=== PATIENT | male | born 1945 | race Caucasian/White ===

== ENCOUNTER 2017-12-02 22:14 | Observation (INO) ==
[2017-12-02] MEDS ORDERED: methylPREDNISolone 125 MG/2 ML VIAL IVP ONE (22:52)
[2017-12-02 23:00] LABS: Basophils % 0.4 %; Eosinophils # 0.3 K/mcL (0.0-0.6); Eosinophils % 5.2 %; Hematocrit 35.7 % (37.5-50.1); Hemoglobin 11.9 g/dL (12.9-16.9); Lymphocytes # 1.3 K/mcL (0.6-4.6); Lymphocytes % 23.1 %; Mean Corpuscular HGB Conc 33.3 g/dL (31.6-35.5); Mean Corpuscular Hemoglobin 29.8 pg (28.0-33.3); Mean Corpuscular Volume 89.3 fL (83.0-100.0); Monocytes # 0.8 K/mcL (0.0-1.3); Monocytes % 14.4 %; Neutrophils # 3.1 K/mcL (1.6-8.9); Platelet Count 187 K/mcL (140-400); Red Cell Distribution Width 14.1 % (11.5-14.5); Segmented Neutrophils % 54.9 %
[2017-12-02 23:13] LABS: BUN/Creatinine Ratio 11 (6-26); Blood Urea Nitrogen 11 mg/dL (8-23); Calcium 7.7 mg/dL (8.6-10.3); Carbon Dioxide 24 mEq/L (23-29); Chloride 104 mEq/L (98-107); Glucose 108 mg/dL (70-105); Osmolality,Calculated 286 (280-300); Potassium 2.8 mEq/L (3.5-5.1); Sodium 138 mEq/L (136-145); eGFR For African Americans > 60 (> 60); eGFR For Non-African Americans > 60 (> 60)
--- NOTE | 2017-12-03 01:12 | Emergency Department Note ---
Disposition Clinical Impression: Hypokalemia Congestive heart failure Qualifiers: Congestive heart failure type: unspecified Congestive heart failure chronicity : acute Qualified Code(s): I50.9 - Heart failure, unspecified Angioedema Qualifiers: Encounter type: initial encounter Qualified Code(s): T78.3XXA - Angioneurotic edema, initial encounter Disposition: Admitted As Inpatient Condition: Good Chest Pain HPI - General Chief Complaint: ED Chest Pain Stated Complaint: chest tightness Time Seen by Provider: 12/02/17 22:20 Source: patient, family Limitations: no limitations Vital Signs Reviewed: Yes Nursing Notes Reviewed: Yes - History of Present Illness HPI Narrative: Patient presents to the emergency department for complaints of left-sided facial swelling as well as chest pain. Patient states symptoms started just prior to arrival. Patient noticed swelling of the lower lip and was concerned about possible stroke. No neurologic deficits noted. The patient states that the chest pain was described as a pressure in his chest which she has had before with previous [place]. Patient states chest pain has mostly resolved the problem presentation to the emergency department. Patient has never had any angioedema or similar swelling in the past. No new medications or foods. Patient does not know all of his medications and pharmacy med records have been requested. Severity scale (1-10): 0 - Related Data Home Medications Medication Instructions Recorded Confirmed Albuterol Sulfate [Proair Hfa] 2 puff IH Q4H PRN 06/08/16 12/02/17 Atorvastatin Calcium [Lipitor] 80 mg PO HS 06/08/16 12/02/17 Clopidogrel [Plavix] 75 mg PO DAILY 06/08/16 12/02/17 Fluticasone Propionate Nasal 50 mcg NS DAILY 06/08/16 12/02/17 [Flonase] Fluticasone/Salmeterol [Advair Hfa 2 puff IH BID 06/08/16 12/02/17 230-21 Mcg Inhaler] Montelukast [Singulair] 10 mg PO HS 06/08/16 12/02/17 Tamsulosin [Flomax] 0.4 mg PO DAILY 06/08/16 12/02/17 Finasteride [Proscar] 5 mg PO DAILY 12/02/17 12/02/17 Lisinopril [Zestril] 10 mg PO DAILY 12/02/17 12/02/17 Metoprolol XL (24 HR) Succ [Toprol 75 mg PO DAILY 12/02/17 12/02/17 XL] Allergies Allergy/AdvReac Type Severity Reaction Status Date / Time No Known Allergies Allergy Verified 06/08/16 08:57 All systems ED: reviewed and negative except as stated. Constitutional: Denies: fever, chills ENT ED: Reports: other (Lip swelling) Cardiovascular: Reports: chest pain Respiratory: Reports: dyspnea (Exertion) Gastrointestinal: Denies: abdominal pain, nausea, vomiting Musculoskeletal: Denies: back pain Integumentary: Reports: other (Lip swelling) Neurological: Denies: headache, weakness, numbness, paresthesias, confusion Endocrine: Denies: fatigue Chest Pain PMH - Past Medical History Medical history: Reports: asthma, coronary artery disease, hypertension Surgical history: Reports: coronary bypass (CABG), herniorrhaphy, sinus surgery Psychiatric history: Reports: no psych history - Social History Smoking Status: Never smoker Alcohol use: Reports: none Drug use: Reports: none Physical Exam General: Well appearing, nontoxic, no acute distress Head: Normocephalic Atraumatic Eyes: PERRL, EOMI ENT: Airway patent, no stridor Neck: supple, no meningismus Chest: Lungs clear to auscultation bilateral Cardiac: Regular rate and rhythm, no murmurs, rubs or gallops Abdomen: soft, nontender, nondistended; no guarding, rebound, or tenderness to percussion Musculoskeletal: Calves symmetric, nontender, no palpable cord Skin: No rash, normal skin tone Neuro: Alert and Oriented to person, place, and time; No focal deficit, CN 2-12 symmetric and intact; strength and sensation intact throughout the upper and lower extremities, finger to nose intact bilaterally. - General Limitations: no limitations General appearance: alert, in no apparent distress Course - Reevaluation(s) Reevaluation #1: Patient's lip swelling has improved with Benadryl and steroids. The patient's labs show that he has a potassium of 2.8 and a elevated BNP which is new with associated chest x-ray showing pulmonary vascular congestion. Upon further questioning the patient states he has had worsening exertional dyspnea over the last couple weeks. Due to the patient's low potassium he has not received Lasix within the emergency department. Potassium by mouth has been given. Patient will need further observation and management in the hospital. Patient will be admitted to the hospitalist service. - Consultations Consultation #1: Discussed with hospitalist. Patient accepted for admission. Vital Signs Temperature 97.8 F 12/02/17 22:16 Pulse Rate 84 12/02/17 22:16 Respiratory Rate 16 12/02/17 22:16 Blood Pressure 215/119 12/02/17 22:16 O2 Sat by Pulse Oximetry 94 12/02/17 22:16 Temperature 97.8 F 12/02/17 22:16 Pulse Rate 79 12/03/17 01:49 Respiratory Rate 12 12/03/17 01:49 Blood Pressure 166/80 12/03/17 01:49 O2 Sat by Pulse Oximetry 91 12/03/17 01:49 Oxygen Delivery Oxygen Delivery Room Air Chest Pain - Lab Data Result diagrams: 12/02/17 22:30 12/02/17 22:30 Lab Results 12/02/17 12/02/17 12/02/17 Range/Units 22:30 22:30 22:30 WBC 5.6 (4.3-11.1) K/mcL RBC 4.00 L (4.19-5.50) M/mcL Hgb 11.9 L (12.9-16.9) g/dL Hct 35.7 L (37.5-50.1) % MCV 89.3 (83.0-100.0) fL MCH 29.8 (28.0-33.3) pg MCHC 33.3 (31.6-35.5) g/dL RDW 14.1 (11.5-14.5) % Plt Count 187 (140-400) K/mcL MPV 10.0 (9.4-12.4) fL Immature Gran % 2.0 (0-4) % Seg Neutrophils % 54.9 % Lymphocytes % 23.1 % Monocytes % 14.4 % Eosinophils % 5.2 % Basophils % 0.4 % Neutrophils # 3.1 (1.6-8.9) K/mcL Lymphocytes # 1.3 (0.6-4.6) K/mcL Monocytes # 0.8 (0.0-1.3) K/mcL Eosinophils # 0.3 (0.0-0.6) K/mcL Basophils # 0.0 (0.0-0.2) K/mcL Sodium 138 (136-145) mEq/L Potassium 2.8 L (3.5-5.1) mEq/L Chloride 104 (98-107) mEq/L Carbon Dioxide 24 (23-29) mEq/L BUN 11 (8-23) mg/dL Creatinine 0.99 (0.70-1.30) mg/dL Est GFR ( Amer) > 60 (> 60) Est GFR (Non-Af Amer) > 60 (> 60) BUN/Creatinine Ratio 11 (6-26) Glucose 108 H (70-105) mg/dL Calculated Osmolality 286 (280-300) Calcium 7.7 L (8.6-10.3) mg/dL Troponin I (< 0.04) ng/mL B-Natriuretic Peptide 570 H (Less than 100) pg/mL 12/02/17 Range/Units 22:30 WBC (4.3-11.1) K/mcL RBC (4.19-5.50) M/mcL Hgb (12.9-16.9) g/dL Hct (37.5-50.1) % MCV (83.0-100.0) fL MCH (28.0-33.3) pg MCHC (31.6-35.5) g/dL RDW (11.5-14.5) % Plt Count (140-400) K/mcL MPV (9.4-12.4) fL Immature Gran % (0-4) % Seg Neutrophils % % Lymphocytes % % Monocytes % % Eosinophils % % Basophils % % Neutrophils # (1.6-8.9) K/mcL Lymphocytes # (0.6-4.6) K/mcL Monocytes # (0.0-1.3) K/mcL Eosinophils # (0.0-0.6) K/mcL Basophils # (0.0-0.2) K/mcL Sodium (136-145) mEq/L Potassium (3.5-5.1) mEq/L Chloride (98-107) mEq/L Carbon Dioxide (23-29) mEq/L BUN (8-23) mg/dL Creatinine (0.70-1.30) mg/dL Est GFR ( Amer) (> 60) Est GFR (Non-Af Amer) (> 60) BUN/Creatinine Ratio (6-26) Glucose (70-105) mg/dL Calculated Osmolality (280-300) Calcium (8.6-10.3) mg/dL Troponin I 0.03 (< 0.04) ng/mL B-Natriuretic Peptide (Less than 100) pg/mL Attestation Statement - Attestation Attestation: I, Ahmet Reid MD, personally evaluated this patient and discussed their management with the resident physician. I reviewed the resident's note and agree with the documented findings, medical decision making, and plan of care. 72-year-old male presents to the emergency department with a complaint of some swelling of the left lower lip which started earlier this evening. He also complains of some pressure in his chest which started while he was on the way here to be evaluated for the swelling. No significant shortness of breath. No hives or itching. No cough or fever. No radiation of the chest discomfort. No diaphoresis. On examination patient is a well-developed well-nourished elderly male in no acute distress. He is alert and oriented 3. There is no cyanosis or diaphoresis. Chest is nontender to palpation. Breath sounds are clear and equal bilaterally. Heart regular rate and rhythm with a grade 2/6 systolic murmur. Abdomen is soft and nontender with normal bowel sounds. Labs reviewed. Potassium 2.8. BNP 570. EKG shows a normal sinus rhythm with a rate of 85. There is some mild ST segment depression in V4 through V6. Otherwise no significant change from prior EKG dated 10/04/2016. Chest x-ray shows prominent interstitium. This was not present on the prior and may be due to vascular crowding from low volumes. Developing venous congestion or mild edema not excluded. Patient received IV Pepcid, Solu-Medrol, and Benadryl for the mild angioedema with improvement. He also received a dose of oral potassium. The hospitalist, Dr. Ames, was consulted and accepted the admission of the patient.
[2017-12-03] MEDS ORDERED: Naloxone 0.4 MG/ML INJ IVP PRN (03:57)
[2017-12-03 04:59] LABS: Basophils % 0.2 %; Hematocrit 33.7 % (37.5-50.1); Hemoglobin 11.4 g/dL (12.9-16.9); Immature Granulocytes % 2.1 % (0-4); Lymphocytes # 0.3 K/mcL (0.6-4.6); Lymphocytes % 5.4 %; Mean Corpuscular HGB Conc 33.8 g/dL (31.6-35.5); Mean Corpuscular Hemoglobin 29.8 pg (28.0-33.3); Mean Platelet Volume 9.7 fL (9.4-12.4); Monocytes # 0.1 K/mcL (0.0-1.3); Monocytes % 1.1 %; Neutrophils # 4.9 K/mcL (1.6-8.9); Platelet Count 172 K/mcL (140-400); Red Blood Count 3.83 M/mcL (4.19-5.50); Red Cell Distribution Width 14.4 % (11.5-14.5); Segmented Neutrophils % 91.2 %
[2017-12-03 05:23] LABS: BUN/Creatinine Ratio 11 (6-26); Blood Urea Nitrogen 11 mg/dL (8-23); Calcium 7.9 mg/dL (8.6-10.3); Carbon Dioxide 24 mEq/L (23-29); Chloride 107 mEq/L (98-107); Glucose 154 mg/dL (70-105); Magnesium 1.1 mg/dL (1.6-2.6); Osmolality,Calculated 290 (280-300); Potassium 3.2 mEq/L (3.5-5.1); Sodium 139 mEq/L (136-145); eGFR For African Americans > 60 (> 60); eGFR For Non-African Americans > 60 (> 60)
--- NOTE | 2017-12-03 05:41 | Internal Med History&Physical ---
Date of Encounter: 12/03/17 Time of Encounter: 03:00 Assessment and Plan (1) Chest tightness Current visit: Yes Status: Acute Pt has hx of CAD. C/O chest tightness, need to r/o ACS - Cont cardiac monitoring - Track 3 sets of troponin (2) Angioedema Current visit: Yes Status: Acute Highly suspect caused by ACEI as pt is on lisinopril. Hold lisinopril. List ACEI on his allergy list. - Cont steroid, H1 and H2 atagonist - Closely monitor pt. Qualifiers: Encounter type: initial encounter Qualified Code(s): T78.3XXA - Angioneurotic edema, initial encounter (3) Congestive heart failure Current visit: Yes Status: Acute Pt has recent Echo in Sep 2017 which shows EF 50% with moderate diastolic dysfunction. - Will place pt on lasix 20mg iv qd after potassium supplement. - Strict I/O - Fluid restriction and cardiac diet. Qualifiers: Congestive heart failure type: combined Congestive heart failure chronicity : acute on chronic Qualified Code(s): I50.43 - Acute on chronic combined systolic (congestive) and diastolic (congestive) heart failure (4) Hypokalemia Current visit: Yes Status: Acute Will give potassium supplement (5) DVT prophylaxis Current visit: No Status: Acute Heparin SC (6) CAD (coronary artery disease) of artery bypass graft Current visit: No Status: Chronic Will cont home med plavix, BB, and statin Qualifiers: [place] vs. transplanted heart: [place] heart Associated angina: without angina Qualified Code(s): I25.810 - Atherosclerosis of coronary artery bypass graft(s) without angina pectoris (7) Hypertension Current visit: No Status: Chronic Cont home med but hold lisinopril, add amlodipine 10mg po daily as BP is high. Qualifiers: Hypertension type: essential hypertension Qualified Code(s): I10 - Essential (primary) hypertension Internal Medicine - H&P: HPI Chief complaint: Left cheek and lip swelling Admitted From: Home Plans for Post Hospital Care: Home History of present illness: Mr. Mcadams is a 72 year old male with Hx of CAD s/p CABG, HTN, KIERA on CPAP present to ER for left cheek and lip swelling since this evening around 7-8pm. Pt has HTN on lisinopril. Pt denies tongue or throat swelling. Denies difficult swallowing. Denies slurred speech. The swelling is not painful. When pt got ER, the swelling has improved already. He was consider angioedema and was treated with steroid and Benadryl. Pt has c/o chest tightness about half hour before he got to ER, has mild SOB. No nausea or diaphoresis. Pt has recent exertional intolerance. ER test shows pulmonary congestion and pt has BNP 570. He was suspected CHF. Pt was admitted for angioedema and chest tightness. Past Med Surg Social Fam HX - Past Medical History Medical history: asthma, coronary artery disease, hypertension Psychiatric history: no psych history - Past Surgical History Surgical History: cholecystectomy, coronary bypass (CABG), herniorrhaphy, sinus surgery - Social History Smoking Status: Never smoker Smokeless Tobacco Status: No Alcohol use: none Drug use: none - Family History Mother Living Status: Age at : 65 Cause of : CHF Hx Family Cardiac Disorders: Yes (CHF) Hx Family Respiratory Disorders: No Hx Family Cancer: No Hx Family GI Disorders: No Hx Family Endocrine Disorder: No Hx Family Neuromuscular Disorders: No Hx Family Neurologic Disorders: No Hx Family HEENT Disorders: No Hx Family Autoimmune Disorders: No Father Living Status: Age at : 90 Hx Family Cardiac Disorders: Yes (pace maker) Hx Family Respiratory Disorders: Yes Hx Family Cancer: Yes (Skin) Hx Family GI Disorders: No Hx Family Endocrine Disorder: No Hx Family Neuromuscular Disorders: No Hx Family Neurologic Disorders: No Hx Family HEENT Disorders: No Hx Family Autoimmune Disorders: No Internal Medicine - H&P: Meds Albuterol Sulfate [Proair Hfa] 2 puff IH Q4H PRN 06/08/16 [History] Atorvastatin Calcium [Lipitor] 80 mg PO HS 06/08/16 [History] Clopidogrel [Plavix] 75 mg PO DAILY 06/08/16 [History] Fluticasone Propionate Nasal [Flonase] 50 mcg NS DAILY 06/08/16 [History] Fluticasone/Salmeterol [Advair Hfa 230-21 Mcg Inhaler] 2 puff IH BID 06/08/16 [ History] Montelukast [Singulair] 10 mg PO HS 06/08/16 [History] Tamsulosin [Flomax] 0.4 mg PO DAILY 06/08/16 [History] Finasteride [Proscar] 5 mg PO DAILY 12/02/17 [History] Lisinopril [Zestril] 10 mg PO DAILY 12/02/17 [History] Metoprolol XL (24 HR) Succ [Toprol XL] 75 mg PO DAILY 12/02/17 [History] 3 Allergy/AdvReac Type Severity Reaction Status Date / Time SEDA Inhibitors AdvReac Swelling Verified 12/03/17 04:04 of Lip/Tongue/Throat All Systems PM: A 10-system review of systems was performed and is negative for pertinent findings except as documented above in the HPI. - Constitutional Vitals: Temp Pulse Resp BP Pulse Ox 97.9 F 78 16 171/74 91 12/03/17 03:11 12/03/17 03:11 12/03/17 03:11 12/03/17 03:11 12/03/17 03:11 General appearance: Present: A&O X 3, no acute distress, answers questions appropriately - Head Head exam: Present: atraumatic, normocephalic - Eye Eye exam: Present: PERRL, conjuntiva pink, sclera anicteric Pupils: Present: PERRL - ENT Additional comments: Very mild left lip swelling - Neck Neck exam general surgery: Present: supple, trachea midline. Absent: lymphadenopathy - Respiratory Respiratory exam: Present: CTAB. Absent: accessory muscle use, rales, rhonchi, wheezes - Cardiovascular Cardiovascular exam: Present: RRR, +S1, +S2, systolic murmur. Absent: diastolic murmur, gallop, rubs - GI/Abdominal GI/Abdominal exam: Present: normal bowel sounds, soft, no peritoneal signs. Absent: distended, tenderness - Extremities Exam Extremities exam: Present: pedal edema (mild pedal edema b/l), warm, radial pulses palpable and symmetrical. Absent: calf tenderness, cyanotic - Neurological Exam Neurological exam: Present: CN II-XII intact, oriented X3, no focal deficits. Absent: pronater drift, facial droop, speech deficit - Skin Skin exam: Present: dry, intact Internal Med - H&P Results - Labs CBC & Chem 7: 12/03/17 04:45 12/03/17 04:45 Labs: Short CBC 12/03/17 Range/Units 04:45 WBC 5.4 (4.3-11.1) K/mcL Hgb 11.4 L (12.9-16.9) g/dL Hct 33.7 L (37.5-50.1) % Plt Count 172 (140-400) K/mcL Neutrophils # 4.9 (1.6-8.9) K/mcL BMP 12/03/17 04:45 Sodium 139 Potassium 3.2 L Chloride 107 Carbon Dioxide 24 BUN 11 Creatinine 0.97 Glucose 154 H Calcium 7.9 L Cardiac Enzymes 12/03/17 Range/Units 04:45 Troponin I 0.03 (< 0.04) ng/mL - EKG Data -: EKG Interpreted by Myself EKG shows normal: sinus rhythm Rate: normal
[2017-12-03] MEDS ORDERED: methylPREDNISolone 125 MG/2 ML VIAL IVP SCH (06:00)
[2017-12-03] MEDS ORDERED: Famotidine 20 MG/2 ML VIAL IVP SCH (06:00)
[2017-12-03] MEDS ORDERED: *HR* Heparin 5,000 UNIT/ML VIAL SQ SCH (06:00)
[2017-12-03 07:57] VITALS: BP 159/84
[2017-12-03] MEDS ORDERED: Furosemide 20 MG/2 ML VIAL IVP SCH (09:00)
[2017-12-03] MEDS ORDERED: amLODIPine 5 MG TABLET PO SCH (09:00)
[2017-12-03] MEDS ORDERED: Metoprolol XL (24 HR) Succ 25 MG TAB.ER.24H PO SCH (09:00)
[2017-12-03] MEDS ORDERED: Fluticasone Propionate Nasal 50 MCG/SPRAY BOTTLE NS SCH (09:00)
[2017-12-03] MEDS ORDERED: Finasteride 5 MG TABLET PO SCH (09:00)
[2017-12-03] MEDS ORDERED: Potassium Chloride 40 MEQ, Lidocaine 1% 2 ML in D5% in Water 500 ML IVPB ONE (09:01)
--- NOTE | 2017-12-03 09:32 | Internal Med Progress Note ---
Date of Encounter: 12/03/17 Time of Encounter: 09:30 - Subjective Interval history: Patient reports he has systolic murmur all his life. No more chest pain. - Constitutional Vitals: Temp Pulse Resp BP Pulse Ox 97.9 F 79 18 159/84 96 12/03/17 07:52 12/03/17 07:52 12/03/17 07:52 12/03/17 07:52 12/03/17 07:52 General appearance: Present: A&O X 3, no acute distress, answers questions appropriately - Cardiovascular Cardiovascular exam: Present: systolic murmur - Extremities Exam Additional comments: 1+ nonpitting edema bilateral lower extremities Internal Medicine: Result - Labs CBC & Chem 7: 12/03/17 04:45 12/03/17 04:45 Labs: Short CBC 12/03/17 Range/Units 04:45 WBC 5.4 (4.3-11.1) K/mcL Hgb 11.4 L (12.9-16.9) g/dL Hct 33.7 L (37.5-50.1) % Plt Count 172 (140-400) K/mcL Neutrophils # 4.9 (1.6-8.9) K/mcL BMP 12/03/17 04:45 Sodium 139 Potassium 3.2 L Chloride 107 Carbon Dioxide 24 BUN 11 Creatinine 0.97 Glucose 154 H Calcium 7.9 L Cardiac Enzymes 12/03/17 Range/Units 04:45 Troponin I 0.03 (< 0.04) ng/mL Consult Discharge Plan - Plan Referrals: Jeovanny Carson DO [Primary Care Provider] -
[2017-12-03] MEDS ORDERED: Budesonide/Formoterol 160/4.5 MDI IH SCH (10:00)
--- NOTE | 2017-12-03 10:10 | Discharge Summary ---
<Jack Amin - Last Filed: 12/03/17 10:08> Date of Encounter: 12/03/17 Time of Encounter: 10:00 - Discharge Diagnosis (1) Angioedema Priority: Primary Status: Acute Qualifiers: Encounter type: initial encounter Qualified Code(s): T78.3XXA - Angioneurotic edema, initial encounter (2) Chest tightness Priority: Primary Status: Acute (3) Congestive heart failure Priority: Primary Status: Acute Qualifiers: Congestive heart failure type: combined Congestive heart failure chronicity : acute on chronic Qualified Code(s): I50.43 - Acute on chronic combined systolic (congestive) and diastolic (congestive) heart failure (4) Hypertension Priority: Secondary Status: Chronic Qualifiers: Hypertension type: essential hypertension Qualified Code(s): I10 - Essential (primary) hypertension (5) Hypokalemia Priority: Secondary Status: Acute (6) CAD (coronary artery disease) of artery bypass graft Priority: Secondary Status: Chronic Qualifiers: [place] vs. transplanted heart: [place] heart Associated angina: without angina Qualified Code(s): I25.810 - Atherosclerosis of coronary artery bypass graft(s) without angina pectoris - Discharge Medications Prescriptions: hydrALAZINE [HydrALAZINE] 25 mg PO Q8HR 30 Days #90 tablet Magnesium Oxide [Magnesium] 400 mg PO DAILY #30 capsule Potassium Bicarbonate/Cit AC [Potassium 25 Meq Tablet Eff] 20 meq PO DAILY 7 Days #7 tablet.eff predniSONE [PredniSONE] 40 mg PO DAILY 5 Days #5 tablet Home Medications: Albuterol Sulfate [Proair Hfa] 2 puff IH Q4H PRN 06/08/16 [History] Atorvastatin Calcium [Lipitor] 80 mg PO HS 06/08/16 [History] Clopidogrel [Plavix] 75 mg PO DAILY 06/08/16 [History] Fluticasone Propionate Nasal [Flonase] 50 mcg NS DAILY 06/08/16 [History] Fluticasone/Salmeterol [Advair Hfa 230-21 Mcg Inhaler] 2 puff IH BID 06/08/16 [ History] Montelukast [Singulair] 10 mg PO HS 06/08/16 [History] Tamsulosin [Flomax] 0.4 mg PO DAILY 06/08/16 [History] Finasteride [Proscar] 5 mg PO DAILY 12/02/17 [History] Metoprolol XL (24 HR) Succ [Toprol Xl] 75 mg PO DAILY 12/02/17 [History] Magnesium Oxide [Magnesium] 400 mg PO DAILY #30 capsule 12/03/17 [Rx] Potassium Bicarbonate/Cit AC [Potassium 25 Meq Tablet Eff] 20 meq PO DAILY 7 Days #7 tablet.eff 12/03/17 [Rx] hydrALAZINE [HydrALAZINE] 25 mg PO Q8HR 30 Days #90 tablet 12/03/17 [Rx] predniSONE [PredniSONE] 40 mg PO DAILY 5 Days #5 tablet 12/03/17 [Rx] Allergies/Adverse Reactions: 3 Allergy/AdvReac Type Severity Reaction Status Date / Time SEDA Inhibitors AdvReac Swelling Verified 12/03/17 04:04 of Lip/Tongue/Throat Date of admission: 12/03/17 02:12 Primary care physician: Jeovanny Carson Discharging clinician: Jack Amin Anticipated date of discharge: 12/03/17 - Patient Status Disposition: Home, Self-Care Condition: Good Overall status at discharge: patient is back to baseline - Discharge Instructions Follow Up With: Jeovanny Carson DO [Primary Care Provider] - - Diet and Activity Diet: advance to your usual diet Hospital course: Mr. Mcadams is a 72 year old male with past medical history of CAD status post CABG, hypertension, KIERA on CPAP presents to the emergency room for left cheek and left lip swelling on 12/02/17 at 7 PM. The patient has been taking lisinopril for hypertension at home for the last year. He denied any tongue or throat swelling. Denied difficulty swallowing, slurred speech, painful swelling. She was admitted for angioedema and was treated with steroid and Benadryl. The patient also complained of chest tightness about half an hour before he got to the emergency department. Denied any nausea or diaphoresis. At emergency room, patient had BNP of 570 with suspected CHF. Today, his swelling has resolved. The patient has hypokalemia, hypomagnesemia, hypocalcemia. He denied any more chest pain, shortness of breath, nausea, fever , chills, abdominal pain, diaphoresis, cough. He has no complaints and reports returned to baseline. He also reports that he is comfortable going home today. He is to be discharged with prednisone 40 mg daily for 5 days, magnesium daily, 20 meq potassium daily for 7 days, hydralazine 25 mg 3 times a day. - Time Spent with Patient Total time spent providing and/or coordinating discharge services: Greater than 30 minutes - Constitutional Vitals: Temp Pulse Resp BP Pulse Ox 97.9 F 79 18 159/84 96 12/03/17 07:52 12/03/17 07:52 12/03/17 07:52 12/03/17 07:52 12/03/17 07:52 General appearance: Present: A&O X 3, no acute distress, answers questions appropriately - Head Head exam: Present: atraumatic, normocephalic - Eye Eye exam: Present: normal appearance - ENT ENT exam: Present: mucous membranes moist, normal exam - Neck Neck exam general surgery: Present: full ROM, supple, trachea midline - Respiratory Respiratory exam: Present: CTAB. Absent: rales, stridor, wheezes - Cardiovascular Cardiovascular exam: Present: RRR, +S1, +S2, systolic murmur - GI/Abdominal GI/Abdominal exam: Present: normal bowel sounds, soft, no peritoneal signs. Absent: guarding, tenderness - Extremities Exam Extremities exam: Present: full ROM, warm, radial pulses palpable and symmetrical. Absent: tenderness - Neurological Exam Neurological exam: Present: alert, CN II-XII intact, oriented X3. Absent: facial droop, speech deficit - Psychiatric Psychiatric exam: Present: normal mood - Skin Skin exam: Present: intact, normal color, warm <Brady Edwards H - Last Filed: 12/03/17 11:32> Date of Encounter: 12/03/17 Date of admission: 12/03/17 02:12 Primary care physician: Jeovanny Goff [facility] course: Mr. Mcadams is a 72 year old male - Time Spent with Patient Total time spent providing and/or coordinating discharge services: - Constitutional Vitals: Temp Pulse Resp BP Pulse Ox 97.9 F 79 18 159/84 96 12/03/17 07:52 12/03/17 07:52 12/03/17 07:52 12/03/17 07:52 12/03/17 07:52 - Attending Attestation Angioedema secondary to lisinopril The patient was instructed to avoid any blood pressure medication that ends in "pril and sartan" Time spent on this discharge 40 minutes I examined this patient and my medical decision-making was reviewed with the Resident Physician. I agree with the documented findings, disposition and treatment plan as described except to the extent set forth below.
[2017-12-03] MEDS ORDERED: Magnesium Oxide 400 MG TABLET PO SCH (10:15)
[2017-12-03] MEDS ORDERED: hydrALAZINE 25 MG TABLET PO SCH (10:15)
[2017-12-03] MEDS ORDERED: Famotidine 20 MG TABLET PO SCH (21:00)
--- NOTE | 2017-12-06 18:37 | Electrocardiograph Report ---
[address] [place] [address] Test Date: 2017-12-02 Pat Name: Alexander Mcadams Department: 102 Room: 3A Gender: M Chemistry Instructor: Koby : 1945 Requested By: Adriano Phipps Order Number: [id number] Reading MD: Cj Dawson MD Measurements Intervals [place] Rate: 85 P: 38 AR: 188 QRS: 69 QRSD: 111 T: -37 QT: 373 QTc: 415 Interpretive Statements SINUS RHYTHM LEFT ATRIAL ENLARGEMENT INFERIOR ISCHEMIA Electronically Signed On 12-06-2017 18:35:45 EST by Cj Dawson MD
== END 2017-12-03 13:30 | disposition home or self-care (01) ==
LOC: EMEROO 22:14 → 3ANU 22:14
PROVIDERS: ADMIT Internal Medicine; ATTEND Internal Medicine